=== PATIENT | male | born 1985 | race Caucasian/White ===

== ENCOUNTER → 2018-08-12 | Outpatient (REF) | payer SELFPAY ==
[2018-08-13 10:56] LABS: HEP C VIRUS AB SCREEN MEDICARE 0.1 INDEX (<0.8)
[2018-08-13 10:56] LABS: HEPATITIS B SURFACE ANTIGEN NEGATIVE (NEGATIVE); HIV 1&2 SCREEN CENTAUR NEGATIVE (NEGATIVE)
== END ==
LOC: M LABDRWAD 13:02
DX: Z02.5 Encounter for examination for participation in sport (principal)
CPT/HCPCS: 87340

== ENCOUNTER → 2021-06-22 | Outpatient (CLI) | payer SELFPAY ==
[2021-06-22 13:30] LABS: HEPATITIS B SURFACE ANTIGEN NEGATIVE (NEGATIVE); HEPATITIS C VIRUS ABY INDEX < 0.0 INDEX (<0.8); HIV 1&2 SCREEN CENTAUR NEGATIVE (NEGATIVE)
== END ==
LOC: M WUC 10:11
PROVIDERS: ATTEND Physician Assistant
DX: Z02.5 Encounter for examination for participation in sport (principal)